=== PATIENT | female | born 2000 | race Caucasian/White ===

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

== ENCOUNTER 2019-04-13 21:24 | Emergency (ER) | payer OTHER ==
[~2019-04-13] VITALS: Ht 167.6 cm; Wt 114.3 kg
[~2019-04-13 21:24] MED LIST changes: +Omeprazole20 M1
== END 2019-04-13 22:12 | disposition home or self-care (01) ==
LOC: ER 21:24
DX: G89.18 Other acute postprocedural pain (principal); K08.89 Other specified disorders of teeth and supporting structures; F17.210 Nicotine dependence, cigarettes, uncomplicated; Z90.49 Acquired absence of other specified parts of digestive tract
CPT/HCPCS: 99282

== ENCOUNTER 2020-01-25 16:04 | Emergency (ER) | payer OTHER ==
[~2020-01-25] VITALS: Ht 167.6 cm; Wt 113.4 kg
== END 2020-01-25 17:44 | disposition home or self-care (01) ==
LOC: ER 16:04
DX: R07.9 Chest pain, unspecified (principal); F17.210 Nicotine dependence, cigarettes, uncomplicated
CPT/HCPCS: 71046; 93005; 93010; 99285-25

== ENCOUNTER 2021-02-07 11:40 | Emergency (ER) | payer SELFPAY ==
[~2021-02-07] VITALS: Ht 167.6 cm; Wt 108.9 kg
== END 2021-02-07 14:25 | disposition home or self-care (01) ==
LOC: ER 11:40
DX: S01.312A Laceration without foreign body of left ear, initial encounter (principal); F17.210 Nicotine dependence, cigarettes, uncomplicated; Z23 Encounter for immunization; W45.8XXA Other foreign body or object entering through skin, initial encounter
CPT/HCPCS: 12011; 90471; 90714; 99282-25